=== PATIENT | female | born 1960 | race Caucasian/White ===

== ENCOUNTER → 2019-08-19 12:17 | Outpatient (CLI) | payer BC, SELFPAY ==
--- NOTE | ~2019-08-19 | MM_ITS ---
EXAMINATION: MM screening [facility] BI w audi HISTORY: Screening mammogram TECHNIQUE: Craniocaudal and mediolateral oblique 3-D tomosynthesis images were obtained and synthetic 2-D images were generated. CAD analysis was submitted and interpreted. COMPARISON: 07/08/2018, 05/18/2017 bilateral digital screening mammogram examinations 05/16/2016 diagnostic right digital mammogram 05/06/2016 bilateral digital screening mammogram BREAST PARENCHYMAL COMPOSITION: The breasts are heterogeneously dense, which may obscure small masses . FINDINGS: There is no evidence of suspicious mass, calcification, or architectural distortion to sugg est malignancy in either breast. There has been no suspicious interval change. IMPRESSION: 1. No mammographic evidence of malignancy. 2. Recommend routine screening mammography in one year. BI-RADS Category 1: Negative Reviewed, dictated and finalized at location A. 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
== END ==
PROVIDERS: PCP Internal Medicine; Visit Provider Obstetrics & Gynecology
DX: Z12.31 Encounter for screening mammogram for malignant neoplasm of breast (principal)
CPT/HCPCS: 77063; 77067

== ENCOUNTER → 2020-08-27 11:40 | Outpatient (CLI) | payer BC, SELFPAY ==
--- NOTE | ~2020-08-27 | MM_ITS ---
EXAMINATION: MM screening [facility] BI w audi HISTORY: Screening mammogram TECHNIQUE: Craniocaudal and mediolateral oblique 3-D tomosynthesis images were obtained and synthetic 2-D images were generated. CAD analysis was submitted and interpreted. COMPARISON: 09/05/2019, 07/08/2018, 05/18/2017 bilateral digital screening mammogram examinations BREAST PARENCHYMAL COMPOSITION: There are scattered areas of fibroglandular density. FINDINGS: There are stable bilateral axillary tail lymph nodes. There is no evidence of suspicious ma ss, calcification, or architectural distortion to suggest malignancy in either breast. There has been no suspicious interval change. IMPRESSION: 1. No mammographic evidence of malignancy. 2. Recommend routine screening mammography in one year. BI-RADS Category 1: Negative Reviewed, dictated and finalized at location A. 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
== END ==
PROVIDERS: Visit Provider Obstetrics & Gynecology
DX: Z12.31 Encounter for screening mammogram for malignant neoplasm of breast (principal)
CPT/HCPCS: 77063; 77067

== ENCOUNTER 2021-03-18 01:36 | Day surgery (SDC) | payer OTHER, SELFPAY ==
[2021-03-08 09:29] VITALS: BMI 32.5
--- NOTE | 2021-03-17 13:32 | PM.HPGS ---
History of Present Illness History of Present Illness Consent: Risks, benefits, and alternatives have been discussed and questions answered. Patient agrees to proceed with procedure. Chief complaint: hx of colon polyps, neoplasm screening Narrative: Cindy Farrell is a 60 year old female referred for colon cancer screening. She has had polyps removed in the past Review of Systems Review of Systems: All systems reviewed & are unremarkable except as noted in HPI and below PMFSH Family History Family History Sibling Diabetes mellitus Patient's sister is in good health Father Hypertension Family history of malignant neoplasm Family history of type 2 diabetes mellitus Mother Family history of malignant neoplasm Family history of Alzheimer's disease Social History Social History Smoking status: Never smoker Second hand tobacco smoke exposure: No Alcohol intake: current Living arrangements: alone Spiritual care concerns: No Meds Home Medications and Allergies Home Medications Medication Instructions Recorded Confirmed Type acetaminophen [Tylenol Arthritis] 650 mg PO DAILY 03/08/21 03/18/21 History ascorbic acid (vitamin C) [Vitamin 1 g PO DAILY 03/08/21 03/18/21 History C] aspirin [Aspir-81] 81 mg PO DAILY 03/08/21 03/18/21 History qlvrhot-glakrmhru-joib 1 tablet PO DAILY 03/08/21 03/18/21 History cetirizine [Zyrtec] 10 mg PO DAILY 03/08/21 03/18/21 History cholecalciferol (vitamin D3) 125 mcg PO DAILY 03/08/21 03/18/21 History [Vitamin D3] Allergies Allergy/AdvReac Type Severity Reaction Status Date / Time adhesive Allergy Mild RASH Verified 03/18/21 08:18 Exam Resp: Auscultation: clear to auscultation bilaterally Cardio: Rate: regular rate Rhythm: regular rhythm GI: GI Palp: Yes Soft to palpation and No Tenderness to palpation present (GI) Assessment and Plan Assessment and plan (1) Colon cancer screening: Code(s): Z12.11 - Encounter for screening for malignant neoplasm of colon Status: Acute Assessment and Plan: Colonoscopy with possible biopsy or polypectomy or cautery or injection of substances.
[2021-03-18 08:20] VITALS: BP 144/97; PULSE 106; RESP 16; TEMP 36.6; O2SAT 100; BMI 32.8
[2021-03-18] MEDS: LACTATED RINGERS 1,000 ML 150 ML IV CONT (08:33)
--- NOTE | 2021-03-18 08:52 | WPDANESEPPF ---
Anes - Initial Pre Proc Eval Procedure: Operation Date: 03/18/21 09:00 Proposed Procedures p Screening Colonoscopy - Samuel Castaneda MD Date/Time: 03/18/21 08:52 Surgeon: Samuel Castaneda MD Pre Op Diagnosis: hx of colon polyps, neoplasm screening Patient Data Age: 60 Gender: F Height: 1.65 m Weight: 89.5 kg Last Vital Signs Temp 97.9 F 03/18/21 08:20 Pulse 106 H 03/18/21 08:20 Resp 16 03/18/21 08:20 BP 144/97 H 03/18/21 08:20 Pulse Ox 100 03/18/21 08:20 Allergies Allergy/AdvReac Type Severity Reaction Status Date / Time adhesive Allergy Mild RASH Verified 03/18/21 08:18 Home Medications Medication Instructions Recorded Confirmed Type acetaminophen [Tylenol Arthritis] 650 mg PO DAILY 03/08/21 03/18/21 History ascorbic acid (vitamin C) [Vitamin 1 g PO DAILY 03/08/21 03/18/21 History C] aspirin [Aspir-81] 81 mg PO DAILY 03/08/21 03/18/21 History gninbbv-xsgvlnyta-todf 1 tablet PO DAILY 03/08/21 03/18/21 History cetirizine [Zyrtec] 10 mg PO DAILY 03/08/21 03/18/21 History cholecalciferol (vitamin D3) 125 mcg PO DAILY 03/08/21 03/18/21 History [Vitamin D3] Patient hx anesthesia problems: none Family hx anesthesia problems: none Results Review: All pre-operative results and documents have been reviewed as part of the pre-operative evaluation. [facility] Past Medical History Medical History (Updated 03/18/21 @ 08:48 by Jimenez Harrington MD) Obesity Family History Family History Sibling Diabetes mellitus Patient's sister is in good health Father Hypertension Family history of malignant neoplasm Family history of type 2 diabetes mellitus Mother Family history of malignant neoplasm Family history of Alzheimer's disease Social History Social History Smoking status: Never smoker Second hand tobacco smoke exposure: No Alcohol intake: current Living arrangements: alone Spiritual care concerns: No Anes - Eval Final PreProcedure Day of Procedure 03/18/21 08:52 Patient weight: obese Heart: regular rate and rhythm Lungs: clear to auscultation Airway: Mallampati scale class II Neurological: alert and oriented Last oral intake: >/= 8 hours ASA classification: II Emergent: no Anesthetic plan: proceed Anesthesia type and monitoring: general GIVS and standard monitoring Results Review: All pre-operative results and documents have been reviewed as part of the pre-operative evaluation. Informed Consent: The patient's anesthetic plan and its attendant risks and benefits were discussed with the patient/family/POA. Questions were solicited and answers provided to the satisfaction of the patient/family/POA.
[2021-03-18] MEDS: SIMETHICONE ORAL SUSPENSION 20 MG/0.3 ML 30 ML BOTTLE 0.6 ML IRRIGATION (09:20)
[2021-03-18 09:33] VITALS: BP 125/59; PULSE 89; RESP 18; O2SAT 97
[2021-03-18 09:37] VITALS: BP 127/71; PULSE 91; RESP 23; O2SAT 96
[2021-03-18 09:47] VITALS: BP 130/69; PULSE 68; RESP 24; O2SAT 98
== END 2021-03-18 09:57 | disposition home or self-care (01) ==
PROVIDERS: Visit Provider Internal Medicine Gastroenterology
PROC: 0DJD8ZZ Inspection of Lower Intestinal Tract, Via Natural or Artificial Opening Endoscopic (ICD-10-PCS; CPT 45378; principal; 2021-03-18 09:00)
DX: Z12.11 Encounter for screening for malignant neoplasm of colon (principal); Z86.010 Personal history of colon polyps; K57.30 Diverticulosis of large intestine without perforation or abscess without bleeding; Z79.82 Long term (current) use of aspirin; E66.9 Obesity, unspecified; Z68.32 Body mass index [BMI] 32.0-32.9, adult
CPT/HCPCS: 45378; J2704; J7120

== ENCOUNTER → 2021-09-23 11:23 | Outpatient (CLI) | payer OTHER, SELFPAY ==
--- NOTE | ~2021-09-23 | MM_ITS ---
EXAMINATION: MM screening [facility] BI w audi HISTORY: Screening TECHNIQUE: Craniocaudal and mediolateral oblique 3-D tomosynthesis images were obtained and synthetic 2-D images were generated. CAD analysis was submitted and interpreted. COMPARISON: Comparison to multiple prior studies sequentially, with oldest reviewed study dated 04/18. BREAST PARENCHYMAL COMPOSITION: There are scattered areas of fibroglandular density. FINDINGS: There is no evidence of suspicious mass, calcification, or architectural distortion to sugg est malignancy in either breast. There has been no suspicious interval change. IMPRESSION: 1. No mammographic evidence of malignancy. 2. Recommend routine screening mammography in one year. BI-RADS Category 1: Negative Reviewed, dictated and finalized at location A.
== END ==
PROVIDERS: PCP Internal Medicine; Visit Provider Obstetrics & Gynecology
DX: Z12.31 Encounter for screening mammogram for malignant neoplasm of breast (principal)
CPT/HCPCS: 77063; 77067

== ENCOUNTER → 2022-11-16 10:36 | Outpatient (CLI) | payer OTHER, SELFPAY ==
--- NOTE | ~2022-11-16 | MM_ITS ---
EXAMINATION: MM screening [facility] BI w audi HISTORY: Screening mammogram TECHNIQUE: Craniocaudal and mediolateral oblique 3-D tomosynthesis images were obtained and synthetic 2-D images were generated. CAD analysis was submitted and interpreted. COMPARISON: 09/23/2021, 08/27/2020, 09/05/2019 bilateral screening mammogram examinations BREAST PARENCHYMAL COMPOSITION: There are scattered areas of fibroglandular density. FINDINGS: There is no evidence of suspicious mass, calcification, or architectural distortion to sugg est malignancy in either breast. There has been no suspicious interval change. IMPRESSION: 1. No mammographic evidence of malignancy. 2. Recommend routine screening mammography in one year. BI-RADS Category 1: Negative Reviewed, dictated and finalized at location A.
== END ==
PROVIDERS: PCP Student in an Organized Health Care Education/Training Program; Visit Provider Student in an Organized Health Care Education/Training Program
DX: Z12.31 Encounter for screening mammogram for malignant neoplasm of breast (principal)
CPT/HCPCS: 77063; 77067

== ENCOUNTER 2024-02-01 10:27 | Outpatient (CLI) | payer MEDICARE, SELFPAY ==
--- NOTE | ~2024-02-01 | MM_ITS ---
EXAMINATION: MM screening [facility] BI w audi HISTORY: Screening TECHNIQUE: Craniocaudal and mediolateral oblique 3-D tomosynthesis images were obtained and synthetic 2-D images were generated. CAD analysis was submitted and interpreted. COMPARISON: Comparison to multiple prior studies sequentially, with oldest reviewed study dated 06/2016. BREAST PARENCHYMAL COMPOSITION: Not dense: There are scattered areas of fibroglandular density. FINDINGS: There is no evidence of suspicious mass, calcification, or architectural distortion to sugg est malignancy in either breast. There has been no suspicious interval change. IMPRESSION: 1. No mammographic evidence of malignancy. 2. Recommend routine screening mammography in one year. BI-RADS Category 1: Negative Reviewed, dictated and finalized at location B.
== END 2024-02-01 10:28 ==
LOC: MICIMG 10:29
PROVIDERS: PCP Physician Assistant Medical; Visit Provider Student in an Organized Health Care Education/Training Program
DX: Z12.31 Encounter for screening mammogram for malignant neoplasm of breast (principal)
CPT/HCPCS: 77063; 77067

== ENCOUNTER 2025-02-02 11:07 | Outpatient (CLI) | payer MEDICARE, SELFPAY ==
--- NOTE | ~2025-02-02 | MM_ITS ---
EXAMINATION: MM screening [facility] BI w audi HISTORY: Screening mammogram TECHNIQUE: Craniocaudal and mediolateral oblique 3-D tomosynthesis images were obtained and synthetic 2-D images were generated. CAD analysis was submitted and interpreted. COMPARISON: 02/01/2024, 11/16/2022, 09/23/2021, 08/27/2020 BREAST PARENCHYMAL COMPOSITION:Not Dense. There are scattered areas of fibroglandular density. FINDINGS: No suspicious mass, calcification, or architectural distortion are identified in either [place] ast to suggest malignancy. There has been no suspicious interval change. IMPRESSION: No mammographic evidence of malignancy. Recommend routine screening mammography in one year. BI-RADS Category 1: Negative Reviewed, dictated and finalized at location .
== END 2025-02-02 11:08 | disposition home or self-care (01) ==
PROVIDERS: PCP Student in an Organized Health Care Education/Training Program; Visit Provider Physician Assistant Medical
DX: Z12.31 Encounter for screening mammogram for malignant neoplasm of breast (principal)
CPT/HCPCS: 77063; 77067

== ENCOUNTER 2025-02-03 07:41 | Outpatient (CLI) | payer MEDICARE, SELFPAY ==
--- NOTE | ~2025-02-03 | DEXA_ITS ---
Bone Density Report Name: GUANAKITO MARLOW Age: 64 Sex: Female Ethnicity: White Date of : 1960 Indication: postmenopausal; screening for osteoporosis; asthma or emphysema; Referring Provider: EMMA GILLIS Study: Bone densitometry was performed. Exam Date: February 03, 2025 Accession number: [id number] Bone Density: Region BMD T-score Z-score Classification AP Spine(L1-L4) 1.177 1.2 3.0 Normal Femoral Neck (Left) 0.813 -0.3 1.3 Normal Total Hip (Left) 1.070 1.0 2.3 Normal Femoral Neck (Right) 0.888 0.4 1.9 Normal Total Hip (Right) 1.055 0.9 2.2 Normal Total Hip Mean 1.062 1.0 2.3 Normal World Health Organization criteria for BMD impression classify patients as: Normal (T-score at or above -1.0), Osteopenia (T-score between -1.0 and -2.5), or Osteoporosis (T-score at or below -2.5). 10-year Fracture Risk: FRAX not reported because: All T-scores for Spine Total, Hip Total, Femoral Neck at or above -1.0 Previous Exams: -- Region Exam Age BMD T-score BMD Change BMD Change Date g/cm2 vs Baseline vs Previous -- AP Spine (L1-L4) 02/03/2025 64 1.177 1.2 1.5%# 9.1%# 02/15/2011 50 1.079 0.3 -7.0%* -7.0%* 02/10/2009 48 1.160 1.0 Total Hip(Left) 02/03/2025 64 1.070 1.0 9.5%# 8.5%# 02/15/2011 50 0.986 0.4 0.9% 0.9% 02/10/2009 48 0.977 0.3 Total Hip(Right) 02/03/2025 64 1.055 0.9 11.4%# 8.9%# 02/15/2011 50 0.968 0.2 2.3% 2.3% 02/10/2009 48 0.946 0.0 -- *Denotes significance at 95% confidence level, LSC for AP Spine = 0.022 g/cm2, LSC for Total Hip = 0.027 g/cm2 # Denotes dissimilar scan types or analysis methods Clinical Information Provided by Patient: Has used the following medications: Vitamin D, Calcium Has the following medical conditions: Asthma or Emphysema Patient maximum height was 65 No regular weight bearing exercise Does not regularly consume dairy products Drinks caffeinated beverages Onset of menses at age 12 Number of children 2 Missed period for more than 6 months in a row Impression: The patient has normal bone mass. Unable to evaluate interval change due to the use of different scan modes. Discussion: BONE DENSITY IS ABOVE THE MINIMUM DESIRABLE LEVEL AT ALL SKELETAL SITES TESTED. This patient?s bone mineral density is above the minimum desirable level (T-score -1.0 or better) at all sites measured. The patient should follow a healthful lifestyle (good nutrition with adequate calcium and vitamin D, and appropriate weight-bearing exercise). Follow-Up: Consider repeating this study in 5 years or sooner if there is some new clinical indication. Reported by: ARLINE on 02/03/2025 8:32:00 AM. Reviewed, dictated and finalized at location A.
== END 2025-02-03 07:42 | disposition home or self-care (01) ==
PROVIDERS: PCP Nurse Practitioner Family; Visit Provider Nurse Practitioner Family
DX: N95.8 Other specified menopausal and perimenopausal disorders (principal); Z78.0 Asymptomatic menopausal state
CPT/HCPCS: 77080